=== PATIENT | male | born 1965 | race Caucasian/White ===

== ENCOUNTER 2022-11-25 05:39 | Inpatient (IN) | payer OTHER ==
[2022-11-18 16:02] LABS: CLARITY,URINE CLOUDY (Clear); COLOR,URINE YELLOW (Yellow); GLUCOSE, URINE NEGATIVE (Neg); KETONES,URINE NEGATIVE (Neg); LEUKOCYTE ESTERASE ,URINE NEGATIVE (Neg); NITRITES, URINE NEGATIVE (Neg); OCCULT BLOOD,URINE NEGATIVE (Neg); PH,URINE 6.5 (4.8-8.0); PROTEIN,URINE NEGATIVE (Neg); UROBILINOGEN,URINE 0.2 E.U/dL (0.2-1.0)
[2022-11-18 16:03] LABS: BASOPHILS % (AUTO) 0.3 % (0-1); EOSINOPHILS # (AUTO) 0.1 X10'3 (0-0.9); EOSINOPHILS % (AUTO) 0.8 % (0-6); LYMPHOCYTES # (AUTO) 1.8 X10'3 (1.1-4.8); LYMPHOCYTES % (AUTO) 23.4 % (21-51); MEAN CORPUSCULAR HGB CONC 33.9 g/dL (33.0-36.5); MEAN CORPUSCULAR VOLUME 94.4 FL (78-98); MEAN PLATELET VOLUME 8.2 FL (7.4-10.4); MONOCYTES # (AUTO) 0.9 X10'3 (0-0.9); MONOCYTES % (AUTO) 11.4 % (2-12); NEUTROPHILS % (AUTO) 64.1 % (42-75); PRE OP HEMATOCRIT 49.4 % (42.0-52.0); PRE OP HEMOGLOBIN 16.7 g/dL (14.0-17.9); PRE OP PLATELET COUNT 234 X10'3 (140-440); RED BLOOD COUNT 5.23 X10'6 (4.70-6.10); RED CELL DISTRIBUTION WIDTH 12.6 % (11.5-14.5)
[2022-11-18 16:12] LABS: APTT 29 SECONDS (22-32)
[2022-11-18 16:16] LABS: UA COLLECTION TYPE CLN CATCH MIDSTREAM
[2022-11-18 16:19] LABS: ALBUMIN 3.9 G/DL (3.4-5.0); ALKALINE PHOSPHATASE 89 IU/L (46-116); BLOOD UREA NITROGEN 8 MG/DL (7-18); BUN/CREATININE RATIO 7.2 (10.0-20.0); CALCIUM 8.8 MG/DL (8.5-10.1); CHLORIDE 105 MMOL/L (99-107); CREATININE 1.11 MG/DL (0.60-1.10); PRE OP ALT 42 U/L (30-65); PRE OP ANION GAP 13 (8-16); PRE OP AST 39 U/L (10-37); PRE OP BILIRUB, TOTAL 0.9 MG/DL (0.0-1.0); PRE OP GLUCOSE 121 MG/DL (70-104); PRE OP POTASSIUM 4.2 MMOL/L (3.4-5.1); PRE OP SODIUM 142 MMOL/L (135-145); TOTAL CARBON DIOXIDE 24.1 MMOL/L (24-32); TOTAL PROTEIN 7.9 G/DL (6.4-8.2); eGFR 68 ML/MIN
[2022-11-18 16:24] LABS: BACTERIA,URINE FEW /HPF (Neg); MUCUS STRANDS MODERATE /LPF (Neg); RBC,URINE NONE SEEN /HPF (0-2); SQUAMOUS EPITHELIAL CELL,UR MODERATE /LPF (FEW); WBC,URINE 0-4 /HPF (0-4)
[~2022-11-25] VITALS: Ht 175.3 cm; Wt 79.2 kg
[2022-11-25] VITALS (21 sets, daily range): BP systolic 104–122; BP diastolic 69–84
[~2022-11-25 05:39] MED LIST: NO HOME MEDS; ceFOXitin 2GM-NS 100mL ADDvant 100 ML IV ONE; famotidine 20mg tablet PO ONE; ringers solution, lacted 1,000 ML IV SCH
[2022-11-25] MEDS ORDERED: midazolam 1 mg/ML 2ml injection ONE (07:28)
[2022-11-25] MEDS ORDERED: fentaNYL /PF 50mcg/ml 5ml ampule ONE (07:28)
[2022-11-25] MEDS ORDERED: LIDOcaine 2% (20mg/ml) 5ml vial ONE (07:29)
[2022-11-25] MEDS ORDERED: rocuronium 10mg/ml inj IV ONE ×2 (07:30→08:25)
[2022-11-25] MEDS ORDERED: propofol inj 20 ML IV ONE (07:30)
[2022-11-25] MEDS ORDERED: glycopyrrolate 0.2mg/ml inj ONE (07:32)
[2022-11-25] MEDS ORDERED: sevoflurane 250ml liquid IH ONE (07:32)
[2022-11-25] MEDS ORDERED: neostigmine methylsulfate 1 MG/ML 10ml vial ONE (07:32)
[2022-11-25] MEDS ORDERED: ondansetron/PF 4mg/2ml inj IV PRN ×2 (07:35→09:00)
[2022-11-25] MEDS ORDERED: morphine 4 MG/ML inj SYRINge IV PRN (07:35)
[2022-11-25] MEDS ORDERED: proCHLORperazine 10 MG/2 ml inj IV PRN (07:35)
[2022-11-25] MEDS ORDERED: meperidine/PF 25mg/ml syringe IV PRN ×3 (07:35)
[2022-11-25] MEDS ORDERED: ringers solution, lacted 1,000 ML IV SCH (07:35)
[2022-11-25] MEDS ORDERED: morphine 2 MG/ML inj. syringe IV PRN (07:35)
[2022-11-25] MEDS ORDERED: dexamethasone sod phosphate 4mg/ml inj. ONE (08:00)
[2022-11-25] MEDS ORDERED: ondansetron/PF 4mg/2ml inj ONE (08:00)
[2022-11-25] MEDS ORDERED: naloxone 0.4 mg/ml inj IV PRN (09:00)
[2022-11-25] MEDS ORDERED: Potassium Cl inj 20 MEQ in normal saline 1000ml 990 ML IV SCH (09:00)
[2022-11-25] MEDS ORDERED: BUPIVACAINE liposomal/PF 13.3 MG/ML vial IM ONE (09:15)
[2022-11-25] MEDS ORDERED: BUPIVAcaine/PF 2.5 mg/ml (0.25%) 30ml vial ONE ×2 (09:15→09:21)
--- NOTE | 2022-11-25 10:13 | NUR ---
Received from OR via SURGICAL BED , accompanied by Anesthesiologist MIRIAM and report given by Anesthesiolgist. 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
[2022-11-25] MEDS: HYDROmorph/NS 0.2 mg/ml PCA 100 ML IV SCH ×8 (10:25→23:00)
--- NOTE | 2022-11-25 11:49 | NUR ---
Patient in room PAS IN 900. I have received report from pelon CHERRY and had the opportunity to ask questions and awaiting patients arrival
--- NOTE | 2022-11-25 12:05 | NUR ---
REPORT GIVEN AND ALL QUESTIONS ANSWERED. PATIENT TRANSFERRED TO SURG/ORTHO LABELED BELONGINGS PRESENT AND DELIVERED TO ROOM. JO ANN INGRAM; PRESENT ALL CRITERIA FOR TRANSFER TO THE FLOOR HAS BEEN ACHIEVED. VSS. PAIN AT A TOLERABLE LEVEL. BED LOW, CALL LIGHT PRESENT AND 2 RAILS DOWN. RN AWARE THAT PATIENT HAS ARRIVED. ASSESSED AND MARKED ISLAND DRESSING WITH JO ANN INGRAM Addendum: 11/25/22 at 1207 by Li Lopez RN Amended: Links added.
[2022-11-25] MEDS: potassium Cl 20mEq in NS 1,000 ML IV SCH (14:09)
[2022-11-25] MEDS: normal saline 1000ml 1,000 ML IV SCH (14:32)
[2022-11-25] MEDS: ceFOXitin 2GM-NS 100mL ADDvant 100 ML IV SCH ×2 (15:22→20:50)
--- NOTE | 2022-11-25 18:30 | NUR ---
Patient in room ORTHO 4010. I have received report from JO ANN Sloan and had the opportunity to ask questions and assume patient care.
[2022-11-25] MEDS: docusate sod 100mg capsule PO SCH (20:46)
[2022-11-25] MEDS: sennosides/docusate sodium tablet PO SCH (20:46)
[2022-11-26] MEDS: potassium Cl 20mEq in NS 1,000 ML IV SCH ×4 (01:00→20:23)
[2022-11-26] MEDS: HYDROmorph/NS 0.2 mg/ml PCA 100 ML IV SCH ×12 (01:00→23:00)
[2022-11-26 02:00] VITALS: BP 90/59
[2022-11-26 06:00] VITALS: BP 105/70
--- NOTE | 2022-11-26 06:34 | NUR ---
Problems reprioritized. Patient report given, questions answered & plan of care reviewed with JO ANN Louie.
--- NOTE | 2022-11-26 06:38 | NUR ---
Patient in room ORTHO 4010. I have received report from JO ANN Guy and had the opportunity to ask questions and assume patient care.
[2022-11-26 06:44] LABS: ALBUMIN 3.1 G/DL (3.4-5.0); ANION GAP 9 (8-16); BLOOD UREA NITROGEN 11 MG/DL (7-18); BUN/CREATININE RATIO 9.4 (10.0-20.0); CALCIUM 8.2 MG/DL (8.5-10.1); CHLORIDE 103 MMOL/L (99-107); CREATININE 1.17 MG/DL (0.60-1.10); GLUCOSE 143 MG/DL (70-104); SODIUM 136 MMOL/L (135-145); TOTAL CARBON DIOXIDE 24.4 MMOL/L (24-32); eGFR 64 ML/MIN
[2022-11-26 06:58] LABS: BASOPHILS % (AUTO) 0 % (0-1); EOSINOPHILS % (AUTO) 0 % (0-6); HEMATOCRIT 38.4 % (42.0-52.0); HEMOGLOBIN 12.7 g/dl (14.0-17.9); LYMPHOCYTES # (AUTO) 1.1 X10'3 (1.1-4.8); LYMPHOCYTES % (AUTO) 8.3 % (21-51); MEAN CORPUSCULAR HEMOGLOBIN 31.7 PG (27.0-31.0); MEAN CORPUSCULAR VOLUME 96.1 FL (78-98); MEAN PLATELET VOLUME 8.4 FL (7.4-10.4); MONOCYTES # (AUTO) 1.6 X10'3 (0-0.9); NEUTROPHILS # (AUTO) 10.5 X10'3 (1.8-7.7); NEUTROPHILS % (AUTO) 79.7 % (42-75); PLATELET COUNT 222 X10'3 (140-440); RED BLOOD COUNT 3.99 X10'6 (4.70-6.10); RED CELL DISTRIBUTION WIDTH 12.8 % (11.5-14.5); WHITE BLOOD COUNT 13.2 X10'3 (4.5-11.0)
[2022-11-26] MEDS: docusate sod 100mg capsule PO SCH ×2 (07:33→20:23)
[2022-11-26] MEDS: sennosides/docusate sodium tablet PO SCH ×2 (07:34→20:24)
[2022-11-26 10:00] VITALS: BP 119/78
[2022-11-26 18:00] VITALS: BP 134/82
--- NOTE | 2022-11-26 18:00 | NUR ---
Patient in room ORTHO 4010. I have received report from JO ANN Louie and had the opportunity to ask questions and assume patient care.
--- NOTE | 2022-11-26 18:28 | NUR ---
Problems reprioritized. Patient report given, questions answered & plan of care reviewed with JO ANN Randolph.
[2022-11-26 22:00] VITALS: BP 108/73
[2022-11-27] MEDS: HYDROmorph/NS 0.2 mg/ml PCA 100 ML IV SCH ×6 (01:00→11:00)
[2022-11-27] MEDS: potassium Cl 20mEq in NS 1,000 ML IV SCH (05:30)
[2022-11-27 06:00] VITALS: BP 110/76
--- NOTE | 2022-11-27 06:29 | NUR ---
Problems reprioritized. Patient report given, questions answered & plan of care reviewed with JO ANN Louie.
--- NOTE | 2022-11-27 06:29 | NUR ---
Patient in room ORTHO 4010. I have received report from JO ANN Randolph and had the opportunity to ask questions and assume patient care.
[2022-11-27] MEDS: docusate sod 100mg capsule PO SCH ×2 (07:14→20:49)
[2022-11-27] MEDS: sennosides/docusate sodium tablet PO SCH ×2 (07:14→20:49)
[2022-11-27 07:17] LABS: EOSINOPHILS % (AUTO) 0.3 % (0-6); HEMOGLOBIN 11.4 g/dl (14.0-17.9); MEAN CORPUSCULAR HEMOGLOBIN 32.9 PG (27.0-31.0); MEAN PLATELET VOLUME 8.6 FL (7.4-10.4); RED CELL DISTRIBUTION WIDTH 12.8 % (11.5-14.5)
[2022-11-27 07:19] LABS: BASOPHILS % (AUTO) 0.2 % (0-1); HEMATOCRIT 33.1 % (42.0-52.0); LYMPHOCYTES # (AUTO) 2.3 X10'3 (1.1-4.8); LYMPHOCYTES % (AUTO) 24.6 % (21-51); MEAN CORPUSCULAR HGB CONC 34.3 g/dL (33.0-36.5); MONOCYTES # (AUTO) 1.5 X10'3 (0-0.9); MONOCYTES % (AUTO) 16.5 % (2-12); NEUTROPHILS # (AUTO) 5.4 X10'3 (1.8-7.7); NEUTROPHILS % (AUTO) 58.4 % (42-75); PLATELET COUNT 171 X10'3 (140-440); RED BLOOD COUNT 3.45 X10'6 (4.70-6.10); WHITE BLOOD COUNT 9.2 X10'3 (4.5-11.0)
[2022-11-27 07:33] LABS: ALBUMIN 2.8 G/DL (3.4-5.0); ANION GAP 3 (8-16); BLOOD UREA NITROGEN 9 MG/DL (7-18); BUN/CREATININE RATIO 8.9 (10.0-20.0); CALCIUM 8.1 MG/DL (8.5-10.1); CHLORIDE 108 MMOL/L (99-107); CREATININE 1.01 MG/DL (0.60-1.10); GLUCOSE 90 MG/DL (70-104); POTASSIUM 4.1 MMOL/L (3.5-5.1); SODIUM 139 MMOL/L (135-145); TOTAL CARBON DIOXIDE 28.1 MMOL/L (24-32); eGFR 76 ML/MIN
[2022-11-27] MEDS: normal saline 1000ml 1,000 ML IV SCH (09:24)
[2022-11-27 10:00] VITALS: BP 138/96
[2022-11-27] MEDS: PCA WASTE DOCUMENTATION 1 MG ML MC SCH ×2 (12:04→12:36)
[2022-11-27] MEDS ORDERED: PCA WASTE DOCUMENTATION 1 MG ML MC SCH (12:35)
[2022-11-27] MEDS ORDERED: HYDROcodone/acetaminophen 5mg/325mg tablet PO PRN (13:05)
[2022-11-27] MEDS ORDERED: HYDROcodone/acetaminophen 10/325mg tab PO PRN (13:05)
[2022-11-27 18:00] VITALS: BP 113/79
--- NOTE | 2022-11-27 18:37 | NUR ---
Problems reprioritized. Patient report given, questions answered & plan of care reviewed with JO ANN Guo.
--- NOTE | 2022-11-27 18:40 | NUR ---
Patient in room ORTHO 4010. I have received report from JO ANN STEELE and had the opportunity to ask questions and assume patient care.
[2022-11-27 22:00] VITALS: BP 124/80
[2022-11-28 06:00] VITALS: BP 157/101
--- NOTE | 2022-11-28 06:27 | NUR ---
Problems reprioritized. Patient report given, questions answered & plan of care reviewed with JO ANN STEELE.
--- NOTE | 2022-11-28 06:49 | NUR ---
Patient in room ORTHO 4013. I have received report from JO ANN Guo and had the opportunity to ask questions and assume patient care.
[2022-11-28] MEDS: docusate sod 100mg capsule PO SCH (08:00)
[2022-11-28] MEDS: sennosides/docusate sodium tablet PO SCH (08:00)
--- NOTE | 2022-11-28 09:33 | NUR ---
Per Dr. Guerrero hold off on Colace and Senna this morning.
[2022-11-28 10:00] VITALS: BP 130/88
--- NOTE | 2022-11-28 11:21 | NUR ---
Patient was discharged at 1117 with instructions verbalizing understanding of instructions in wheelchair accompanied by nursing staff and family going home via private vehicle. All lines and tubes including PIV with intact cannula have been removed. Education has been provided at bedside and all questions have been answered. Dr. Holland also saw the patient this morning and educated him on postop diet and activities. Medications have been called in by Dr. Guerrero. Patient is stable and appropriate for discharge.
== END 2022-11-28 11:20 | disposition home or self-care (01) | DRG 331 ==
LOC: PAS IN 05:39 → ORTHO 4S 11:55
PROVIDERS: ADMIT Surgery; ATTEND Surgery
PROC: 0T7D8ZZ Dilation of Urethra, Via Natural or Artificial Opening Endoscopic (ICD-10-PCS; 2022-11-25)
PROC: 0T9880Z Drainage of Bilateral Ureters with Drainage Device, Via Natural or Artificial Opening Endoscopic (ICD-10-PCS; 2022-11-25)
PROC: 3E0T3BZ Introduction of Anesthetic Agent into Peripheral Nerves and Plexi, Percutaneous Approach (ICD-10-PCS; 2022-11-25)
PROC: 3E0T33Z Introduction of Anti-inflammatory into Peripheral Nerves and Plexi, Percutaneous Approach (ICD-10-PCS; 2022-11-25)
PROC: 0DBN4ZZ Excision of Sigmoid Colon, Percutaneous Endoscopic Approach (ICD-10-PCS; principal; 2022-11-25 07:32)
PROC: 0DNW4ZZ Release Peritoneum, Percutaneous Endoscopic Approach (ICD-10-PCS; 2022-11-25 07:32)
DX: K57.92 Diverticulitis of intestine, part unspecified, without perforation or abscess without bleeding (principal); F17.220 Nicotine dependence, chewing tobacco, uncomplicated; N35.912 Unspecified bulbous urethral stricture, male; K66.0 Peritoneal adhesions (postprocedural) (postinfection); Z80.0 Family history of malignant neoplasm of digestive organs
CPT/HCPCS: 36415; 71046; 76000; 80048; 80053; 81001; 82948; 85025; 85610; 85730; 86885; 86900; 86901; 86920; 87081; 93005; A4215; A4358; A4615; A4618; A5200; A7000; C1758; C1769; C9290; G0378; J0694; J1100; J1170; J2175; J2250; J2405; J2704; J2710; J3010; J3480; J3490; J7030; J7120

== ENCOUNTER 2022-12-24 15:28 | Inpatient (IN) | payer OTHER ==
[~2022-12-24] VITALS: Ht 175.3 cm; Wt 75.0 kg
[~2022-12-24 15:28] MED LIST changes: -ceFOXitin 2GM-NS 100mL ADDvant 100 ML IV ONE; -famotidine 20mg tablet PO ONE; -ringers solution, lacted 1,000 ML IV SCH
[2022-12-24] MEDS ORDERED: normal saline 1000ML IV soln IV ONE (15:35)
[2022-12-24] MEDS ORDERED: piperacillin/tazo 3.375gm/50ml 50 ML IV ONE (15:35)
[2022-12-24] MEDS ORDERED: ondansetron/PF 4mg/2ml inj IV ONE (16:05)
[2022-12-24] MEDS ORDERED: morphine 4 MG/ML inj SYRINge IV ONE (16:05)
[2022-12-24 16:48] LABS: BASOPHILS # (AUTO) 0.1 X10'3 (0-0.2); BASOPHILS % (AUTO) 0.7 % (0-1); EOSINOPHILS # (AUTO) 0.1 X10'3 (0-0.9); EOSINOPHILS % (AUTO) 0.6 % (0-6); HEMATOCRIT 36.9 % (42.0-52.0); HEMOGLOBIN 12.2 g/dl (14.0-17.9); LYMPHOCYTES # (AUTO) 1.7 X10'3 (1.1-4.8); LYMPHOCYTES % (AUTO) 15.5 % (21-51); MEAN CORPUSCULAR HEMOGLOBIN 30.3 PG (27.0-31.0); MEAN CORPUSCULAR VOLUME 91.7 FL (78-98); MEAN PLATELET VOLUME 8.1 FL (7.4-10.4); MONOCYTES % (AUTO) 8.7 % (2-12); NEUTROPHILS # (AUTO) 8.4 X10'3 (1.8-7.7); NEUTROPHILS % (AUTO) 74.5 % (42-75); PLATELET COUNT 360 X10'3 (140-440); RED BLOOD COUNT 4.02 X10'6 (4.70-6.10); RED CELL DISTRIBUTION WIDTH 13.3 % (11.5-14.5); WHITE BLOOD COUNT 11.2 X10'3 (4.5-11.0)
[2022-12-24 17:00] LABS: ALANINE AMINOTRANSFERASE 21 U/L (12-78); ALBUMIN 2.7 G/DL (3.4-5.0); ALBUMIN/GLOBULIN RATIO 0.6 (1.1-1.5); ALKALINE PHOSPHATASE 119 IU/L (46-116); ANION GAP 11 (8-16); ASPARTATE AMINO TRANSFERASE 14 U/L (10-37); BILIRUBIN,TOTAL 0.7 MG/DL (0.1-1.0); BLOOD UREA NITROGEN 14 MG/DL (7-18); BUN/CREATININE RATIO 15.1 (10.0-20.0); CALCIUM 8.9 MG/DL (8.5-10.1); CHLORIDE 104 MMOL/L (99-107); CREATININE 0.93 MG/DL (0.60-1.10); GLUCOSE 143 MG/DL (70-104); MAGNESIUM 1.9 MG/DL (1.5-2.4); POTASSIUM 3.4 MMOL/L (3.5-5.1); SODIUM 139 MMOL/L (135-145); TOTAL CARBON DIOXIDE 24.4 MMOL/L (24-32); TOTAL PROTEIN 7.1 G/DL (6.4-8.2); eGFR 83 ML/MIN
[2022-12-24 18:16] LABS: CLARITY,URINE SLIGHTLY CLOUDY (Clear); COLOR,URINE YELLOW (Yellow); GLUCOSE, URINE NEGATIVE (Neg); KETONES,URINE NEGATIVE (Neg); LEUKOCYTE ESTERASE ,URINE NEGATIVE (Neg); NITRITES, URINE POSITIVE (Neg); OCCULT BLOOD,URINE TRACE-INTACT (Neg); PROTEIN,URINE NEGATIVE (Neg); UROBILINOGEN,URINE 0.2 E.U/dL (0.2-1.0)
[2022-12-24 18:26] LABS: UA COLLECTION TYPE URINAL
[2022-12-24 18:32] LABS: BACTERIA,URINE 1+ /HPF (Neg); RBC,URINE 0-2 /HPF (0-2); SQUAMOUS EPITHELIAL CELL,UR FEW /LPF (FEW)
[2022-12-24 18:33] LABS: TRANSITIONAL EPI CELLS,URINE FEW /HPF
[2022-12-24] MEDS ORDERED: potassium Cl 40MEQ/1/2NS 520ml 520 ML IV PRN (18:35)
[2022-12-24] MEDS ORDERED: acetaminophen 325mg tablet PO PRN ×2 (18:35)
[2022-12-24] MEDS ORDERED: magnesium Cl slow-release 64mg tablet PO PRN (18:35)
[2022-12-24] MEDS ORDERED: potassium Cl 20 mEq SR tablet PO PRN (18:35)
[2022-12-24] MEDS ORDERED: HYDROcodone/acetaminophen 5mg/325mg tablet PO PRN (18:35)
[2022-12-24] MEDS ORDERED: morphine 2 MG/ML inj. syringe IV PRN ×2 (18:35)
[2022-12-24] MEDS ORDERED: magnesium 2GM in 50ml NS 50 ML IV PRN (18:35)
[2022-12-24] MEDS ORDERED: magnesium 4gm in 100ml NS 100 ML IV PRN (18:35)
[2022-12-24] MEDS ORDERED: ondansetron/PF 4mg/2ml inj IV PRN (18:35)
[2022-12-24] MEDS: normal saline 1000ml 1,000 ML IV SCH (18:53)
[2022-12-24] MEDS: enoxaparin 40mg/0.4ml syringe SQ SCH (20:09)
--- NOTE | 2022-12-24 20:30 | NUR ---
Patient in room ORTHO 4008. I have received report from Krysta LEE and had the opportunity to ask questions and assume patient care.
[2022-12-24 21:00] VITALS: BP 115/80; PULSE 95; RESP 17; TEMP 97.9; O2SAT 98
[2022-12-24] MEDS ORDERED: temazepam 15mg capsule PO PRN (21:00)
[2022-12-24] MEDS: HYDROcodone/acetaminophen 10/325mg tab PO PRN (21:24)
[2022-12-24] MEDS: potassium Cl 20 mEq SR tablet PO PRN (21:24)
[2022-12-25] VITALS (8 sets, daily range): BP systolic 114–118; BP diastolic 75–78; PULSE 57–107; RESP 15–18; TEMP 97.9–98.7; O2SAT 94–98
[2022-12-25] MEDS: piperacillin/tazo 3.375gm/50ml 50 ML IV SCH ×4 (00:01→23:53)
[2022-12-25] MEDS: potassium Cl 20 mEq SR tablet PO PRN (01:36)
[2022-12-25] MEDS: normal saline 1000ml 1,000 ML IV SCH ×3 (03:25→22:04)
--- NOTE | 2022-12-25 06:13 | NUR ---
Problems reprioritized. Patient report given, questions answered & plan of care reviewed with Naomy CHERRY.
--- NOTE | 2022-12-25 06:41 | NUR ---
Patient in room ORTHO 4008. I have received report from Faith CHERRY and had the opportunity to ask questions and assume patient care.
[2022-12-25 06:46] LABS: BASOPHILS % (AUTO) 0.3 % (0-1); EOSINOPHILS # (AUTO) 0.2 X10'3 (0-0.9); EOSINOPHILS % (AUTO) 2.1 % (0-6); HEMATOCRIT 34.1 % (42.0-52.0); HEMOGLOBIN 11.5 g/dl (14.0-17.9); LYMPHOCYTES # (AUTO) 1.9 X10'3 (1.1-4.8); LYMPHOCYTES % (AUTO) 27.2 % (21-51); MEAN CORPUSCULAR HEMOGLOBIN 31.2 PG (27.0-31.0); MEAN CORPUSCULAR HGB CONC 33.8 g/dL (33.0-36.5); MEAN CORPUSCULAR VOLUME 92.1 FL (78-98); MEAN PLATELET VOLUME 8.1 FL (7.4-10.4); MONOCYTES # (AUTO) 0.9 X10'3 (0-0.9); MONOCYTES % (AUTO) 12.6 % (2-12); NEUTROPHILS # (AUTO) 4.1 X10'3 (1.8-7.7); NEUTROPHILS % (AUTO) 57.8 % (42-75); PLATELET COUNT 285 X10'3 (140-440); RED CELL DISTRIBUTION WIDTH 13.3 % (11.5-14.5); WHITE BLOOD COUNT 7.1 X10'3 (4.5-11.0)
[2022-12-25 07:00] LABS: ALANINE AMINOTRANSFERASE 16 U/L (12-78); ALBUMIN 2.1 G/DL (3.4-5.0); ALBUMIN/GLOBULIN RATIO 0.6 (1.1-1.5); ALKALINE PHOSPHATASE 97 IU/L (46-116); ANION GAP 9 (8-16); ASPARTATE AMINO TRANSFERASE 15 U/L (10-37); BILIRUBIN,TOTAL 0.5 MG/DL (0.1-1.0); BLOOD UREA NITROGEN 13 MG/DL (7-18); BUN/CREATININE RATIO 15.1 (10.0-20.0); CHLORIDE 110 MMOL/L (99-107); CREATININE 0.86 MG/DL (0.60-1.10); GLUCOSE 93 MG/DL (70-104); POTASSIUM 4.2 MMOL/L (3.5-5.1); SODIUM 142 MMOL/L (135-145); TOTAL CARBON DIOXIDE 22.7 MMOL/L (24-32); TOTAL PROTEIN 5.7 G/DL (6.4-8.2); eGFR > 90 ML/MIN
--- NOTE | 2022-12-25 08:33 | NUR ---
Spoke with Dr Jose regarding no orders for Angio to see patient. Per Dr Jose he will advise Dr Juárez that we need an order.
--- NOTE | 2022-12-25 12:24 | NUR ---
Malnutrition consult: Pt reports 14-23 lb wt loss with decreased appetite/PO intake per malnutrition risk screen with RN. Pt seen at bedside, reports UBW 180 lbs with 15 lb wt loss since surgery about a month ago (s/p sigmoid colon resection 11/25 per EMR). Pt with scaled wt h/o 174 lbs 12/25 and current scaled weight is 165 lbs. This is non-severe wt loss of 5% (9 lbs) in one month. Pt reports wt loss is d/t to low PO intake secondary to post-op pain and no appetite or energy. Per pt he was on a liquid diet for about a week or so post-op with PO intake slowly increasing to the point where he could eat regularly, however given 5% wt loss pt likely was not eating adequately to meet estimated nutrient needs. 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 Pt admit for abdominal pain with pelvic fluid and gas collection suspicious for an abscess or other postoperative fluid collection. Pt with an active regular diet and documented with 100% PO intake first meal however per RN currently NPO pending IR. Pt endorses a good appetite stating he is starving. Pt denies food allergies though with food preferences that were d/w dietary, see below. Pt denies any issues chewing or swallowing. LBM 12/23 per EMR. Pt provided with RD contact information and encouraged to reach out if needed. Will continue to follow and make recommendations as appropriate. Recommendations: 1) Resume regular diet as medically indicated 2) [place] food preferences: pt likes corn and green beans; dislikes peas, brussel sprouts, asparagus, broccoli, cauliflower, carrots, and beats 3) Bowel care per physician 4) Weekly scaled weights Addendum: 12/25/22 at [address] Amended: Links added.
[2022-12-25] MEDS ORDERED: morphine 2 MG/ML inj. syringe IV PRN (12:50)
--- NOTE | 2022-12-25 12:51 | NUR ---
Received orders for Morphine to be changed from Q8h to Q4H on both 1mg and [address] Lima
[2022-12-25] MEDS: morphine 2 MG/ML inj. syringe IV PRN (12:58)
--- NOTE | 2022-12-25 14:04 | NUR ---
Contacted IR and Quyen CHERRY stated that per Dr Rader they are unable to access the abscess.
[2022-12-25] MEDS: HYDROcodone/acetaminophen 10/325mg tab PO PRN (15:59)
--- NOTE | 2022-12-25 18:05 | NUR ---
Problems reprioritized. Patient report given, questions answered & plan of care reviewed with Faith CHERRY.
--- NOTE | 2022-12-25 18:10 | NUR ---
Patient in room ORTHO 4008. I have received report from Naomy CHERRY and had the opportunity to ask questions and assume patient care.
[2022-12-25] MEDS: enoxaparin 40mg/0.4ml syringe SQ SCH (19:43)
[2022-12-26] MEDS: HYDROcodone/acetaminophen 10/325mg tab PO PRN ×3 (01:59→19:27)
[2022-12-26 04:34] LABS: ALANINE AMINOTRANSFERASE 17 U/L (12-78); ALBUMIN 2.4 G/DL (3.4-5.0); ALBUMIN/GLOBULIN RATIO 0.5 (1.1-1.5); ALKALINE PHOSPHATASE 99 IU/L (46-116); ANION GAP 10 (8-16); ASPARTATE AMINO TRANSFERASE 14 U/L (10-37); BILIRUBIN,TOTAL 0.5 MG/DL (0.1-1.0); BLOOD UREA NITROGEN 7 MG/DL (7-18); C-REACTIVE PROTEIN 7.68 MG/DL (0.0-0.5); CALCIUM 8.5 MG/DL (8.5-10.1); CHLORIDE 106 MMOL/L (99-107); GLUCOSE 98 MG/DL (70-104); POTASSIUM 4.1 MMOL/L (3.5-5.1); SODIUM 141 MMOL/L (135-145); TOTAL CARBON DIOXIDE 24.7 MMOL/L (24-32); eGFR 77 ML/MIN
[2022-12-26 04:44] LABS: BASOPHILS % (AUTO) 0.2 % (0-1); EOSINOPHILS # (AUTO) 0.2 X10'3 (0-0.9); EOSINOPHILS % (AUTO) 2.1 % (0-6); HEMATOCRIT 36.3 % (42.0-52.0); HEMOGLOBIN 12.2 g/dl (14.0-17.9); LYMPHOCYTES % (AUTO) 22.8 % (21-51); MEAN CORPUSCULAR HGB CONC 33.5 g/dL (33.0-36.5); MEAN CORPUSCULAR VOLUME 92.5 FL (78-98); MEAN PLATELET VOLUME 8.5 FL (7.4-10.4); MONOCYTES # (AUTO) 0.9 X10'3 (0-0.9); MONOCYTES % (AUTO) 10.5 % (2-12); NEUTROPHILS # (AUTO) 5.5 X10'3 (1.8-7.7); NEUTROPHILS % (AUTO) 64.4 % (42-75); PLATELET COUNT 317 X10'3 (140-440); RED BLOOD COUNT 3.92 X10'6 (4.70-6.10); RED CELL DISTRIBUTION WIDTH 13.1 % (11.5-14.5); WHITE BLOOD COUNT 8.6 X10'3 (4.5-11.0)
[2022-12-26 06:00] VITALS: BP 114/76; PULSE 61; RESP 16; TEMP 98.6; O2SAT 98
--- NOTE | 2022-12-26 06:16 | NUR ---
Problems reprioritized. Patient report given, questions answered & plan of care reviewed with Mitali LEE.
--- NOTE | 2022-12-26 06:18 | NUR ---
Patient in room ORTHO 4008. I have received report from JO ANN Young and had the opportunity to ask questions and assume patient care.
[2022-12-26 08:00] VITALS: RESP 16; O2SAT 98
[2022-12-26] MEDS: piperacillin/tazo 3.375gm/50ml 50 ML IV SCH ×3 (08:02→23:27)
[2022-12-26 10:00] VITALS: BP 122/81; PULSE 61; RESP 16; TEMP 97.4; O2SAT 96
[2022-12-26] MEDS: normal saline 1000ml 1,000 ML IV SCH ×2 (10:35→16:31)
[2022-12-26] MEDS ORDERED: LEVO-65 PO ×2 (12:45→12:50)
[2022-12-26] MEDS ORDERED: METR-159 PO ×2 (12:45→12:50)
[2022-12-26] MEDS ORDERED: HYDR-3965 PO ×2 (12:45→12:50)
--- NOTE | 2022-12-26 14:44 | NUR ---
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
[2022-12-26 18:00] VITALS: BP 125/85; PULSE 57; RESP 16; TEMP 97.4; O2SAT 97
--- NOTE | 2022-12-26 18:43 | NUR ---
Problems reprioritized. Patient report given, questions answered & plan of care reviewed with JO ANN Archibald. Addendum: 12/26/22 at 1847 by Arvind Angeles LVN, LVN Problems reprioritized. Patient report given, questions answered & plan of care reviewed with JESUS Archibald
[2022-12-26] MEDS: enoxaparin 40mg/0.4ml syringe SQ SCH (19:27)
[2022-12-26] MEDS: diatr meglu/diatrizoate 30ml oral sol.-(3 dose) bottle PO SCH (21:11)
[2022-12-26 22:00] VITALS: BP 147/84; PULSE 60; RESP 17; TEMP 98.1; O2SAT 96
--- NOTE | 2022-12-26 22:49 | NUR ---
Agree with Cristela LEE physical assessment except where I documented my findings.
[2022-12-26] MEDS: morphine 2 MG/ML inj. syringe IV PRN (23:34)
[2022-12-27] MEDS: normal saline 1000ml 1,000 ML IV SCH (02:34)
[2022-12-27 06:00] VITALS: BP 127/89; PULSE 70; RESP 17; TEMP 98.3; O2SAT 98
--- NOTE | 2022-12-27 06:20 | NUR ---
Problems reprioritized. Patient report given, questions answered & plan of care reviewed with YANICK LEE.
--- NOTE | 2022-12-27 06:25 | NUR ---
Patient in room ORTHO 4007. I have received report from JESUS Saldivar and had the opportunity to ask questions and assume patient care. NAD at this time.
[2022-12-27 07:04] LABS: BASOPHILS % (AUTO) 0.3 % (0-1); EOSINOPHILS # (AUTO) 0.2 X10'3 (0-0.9); EOSINOPHILS % (AUTO) 2.8 % (0-6); HEMATOCRIT 36.1 % (42.0-52.0); HEMOGLOBIN 12.2 g/dl (14.0-17.9); LYMPHOCYTES # (AUTO) 1.8 X10'3 (1.1-4.8); LYMPHOCYTES % (AUTO) 31.4 % (21-51); MEAN CORPUSCULAR HEMOGLOBIN 30.7 PG (27.0-31.0); MEAN CORPUSCULAR HGB CONC 33.7 g/dL (33.0-36.5); MEAN CORPUSCULAR VOLUME 91.1 FL (78-98); MEAN PLATELET VOLUME 7.8 FL (7.4-10.4); MONOCYTES # (AUTO) 0.8 X10'3 (0-0.9); MONOCYTES % (AUTO) 13.7 % (2-12); NEUTROPHILS # (AUTO) 2.9 X10'3 (1.8-7.7); NEUTROPHILS % (AUTO) 51.8 % (42-75); PLATELET COUNT 288 X10'3 (140-440); RED BLOOD COUNT 3.96 X10'6 (4.70-6.10); RED CELL DISTRIBUTION WIDTH 13.1 % (11.5-14.5); WHITE BLOOD COUNT 5.7 X10'3 (4.5-11.0)
[2022-12-27] MEDS: diatr meglu/diatrizoate 30ml oral sol.-(3 dose) bottle PO SCH (07:07)
[2022-12-27] MEDS: piperacillin/tazo 3.375gm/50ml 50 ML IV SCH (07:08)
[2022-12-27 07:28] LABS: ALANINE AMINOTRANSFERASE 18 U/L (12-78); ALBUMIN 2.4 G/DL (3.4-5.0); ALBUMIN/GLOBULIN RATIO 0.6 (1.1-1.5); ALKALINE PHOSPHATASE 103 IU/L (46-116); ANION GAP 9 (8-16); ASPARTATE AMINO TRANSFERASE 24 U/L (10-37); BILIRUBIN,TOTAL 0.4 MG/DL (0.1-1.0); BLOOD UREA NITROGEN 5 MG/DL (7-18); BUN/CREATININE RATIO 5.4 (10.0-20.0); CALCIUM 8.4 MG/DL (8.5-10.1); CHLORIDE 107 MMOL/L (99-107); CREATININE 0.92 MG/DL (0.60-1.10); GLUCOSE 96 MG/DL (70-104); POTASSIUM 3.6 MMOL/L (3.5-5.1); SODIUM 140 MMOL/L (135-145); TOTAL CARBON DIOXIDE 23.8 MMOL/L (24-32); TOTAL PROTEIN 6.6 G/DL (6.4-8.2); eGFR 84 ML/MIN
[2022-12-27 08:00] VITALS: RESP 16; O2SAT 96
[2022-12-27] MEDS ORDERED: diatr meglu/diatrizoate 30ml oral sol.-(3 dose) bottle ONE (09:31)
[2022-12-27 10:00] VITALS: BP 119/88; PULSE 62; RESP 16; TEMP 97.4
--- NOTE | 2022-12-27 13:27 | NUR ---
PAGER ID: [phone] MESSAGE: [id number] scan is back; pt is still on NPO impression. Can he resume his diet? (110 character message out of a maximum of 240) CLOSE [X]
--- NOTE | 2022-12-27 16:40 | NUR ---
Patient is A&Ox4, no acute distress upon discharge. Accompanied by his , transportation to home with their vehicle. Patient has belongings w/ him upon discharge. Discharge paperwork reviewed w/ patient and understand to f/u w/ Dr. Guerrero; call 12/28/22 for a appt and time. IV d/c'd of the right forearm, cannula intact. Patient is stable upon d/c. Ambulated out w/ no difficulty.
== END 2022-12-27 16:40 | disposition home or self-care (01) | DRG 862 ==
LOC: ER 15:28 → ED HOLD 18:40 → ORTHO 4S 21:08
PROVIDERS: ADMIT Internal Medicine; ATTEND Internal Medicine
DX: T81.43XA Infection following a procedure, organ and space surgical site, initial encounter (principal); K65.1 Peritoneal abscess; E46 Unspecified protein-calorie malnutrition; K57.20 Diverticulitis of large intestine with perforation and abscess without bleeding; Y83.8 Other surgical procedures as the cause of abnormal reaction of the patient, or of later complication, without mention of misadventure at the time of the procedure; D50.9 Iron deficiency anemia, unspecified; E83.51 Hypocalcemia; E78.2 Mixed hyperlipidemia; G89.29 Other chronic pain; M54.9 Dorsalgia, unspecified; Z68.24 Body mass index [BMI] 24.0-24.9, adult; Y92.89 Other specified places as the place of occurrence of the external cause
CPT/HCPCS: 36415; 74176; 80053; 81001; 83605; 83735; 84145; 85025; 85610; 85651; 86140; 87040; 87081; 87088; 97116; 97161; 97530; 99285; G0378; J1650; J2270; J2405; J2543; J7030; Q9963